=== PATIENT | male | born 2000 | race Caucasian/White ===

== ENCOUNTER 2022-10-24 22:04 | Day surgery (SDC) | payer BC, OTHER ==
[~2022-10-24] VITALS: Ht 175 cm; Wt 60.6 kg
[2022-10-24] MEDS ORDERED: ONDANSETRON 4 MG/2 ML (SDV) Z0FRAN ONE (22:14)
[2022-10-24] MEDS ORDERED: NS IV 1000 ML 1,000 ML IV STA (22:17)
[2022-10-24 22:23] LABS: BASOPHILS # (AUTO) 0.1 10^3/uL (0.0-0.1); BASOPHILS % (AUTO) 0 % (0-10); EOSINOPHILS # (AUTO) 0.1 10^3/uL (0.0-0.3); EOSINOPHILS % (AUTO) 1 % (0-10); HEMATOCRIT 48 % (40-54); HEMOGLOBIN 16.8 g/dL (13.3-17.7); LYMPHOCYTES # (AUTO) 4.3 10^3/uL (1.0-4.0); LYMPHOCYTES % (AUTO) 20 % (12-44); MEAN CORPUSCULAR HEMOGLOBIN 32 pg (25-34); MEAN CORPUSCULAR HGB CONC 35 g/dL (32-36); MEAN CORPUSCULAR VOLUME 90 fL (80-99); MEAN PLATELET VOLUME 9.4 fL (9.0-12.2); MONOCYTES # (AUTO) 1.3 10^3/uL (0.0-1.0); MONOCYTES % (AUTO) 6 % (0-12); NEUTROPHILS # (AUTO) 15.5 10^3/uL (1.8-7.8); NEUTROPHILS % (AUTO) 73 % (42-75); PLATELET COUNT 305 10^3/uL (130-400); WHITE BLOOD COUNT 21.3 10^3/uL (4.3-11.0)
[2022-10-24] MEDS ORDERED: fentaNYL INJ 100 MCG/2 ML AMP IVP STA (22:23)
--- NOTE | 2022-10-24 22:28 | ED Abdominal Pain ---
General Chief Complaint: Abdominal/GI Problems Stated Complaint: ABDOMINAL PAIN Source of Information: Patient Exam Limitations: No Limitations History of Present Illness Date Seen by Provider: Oct 24, 2022 Time Seen by Provider: 22:16 Initial Comments Here with complaint of right-sided abdominal pain. He reported right upper quadrant pain but appears to be more right lower quadrant pain. States it started about 3:30 PM. Last ate at 2:30 PM and had fish. Has had nausea and vomiting. Denies diarrhea. Denies fevers but does have chills. No previous significant medical history or surgeries. Timing/Duration: 4-6 Hours Severity/Quality: Moderate, Severe Location: RLQ Radiation: RUQ Activities at Onset: None Modifying Factors: Worsens With Movement, Worsens With Palpation Associated Symptoms: No Back Pain; Nausea/Vomiting; No Weakness Allergies and Home Medications Allergies Coded Allergies: No Known Drug Allergies (Unverified , 10/24/22) Patient Home Medication List Home Medication List Reviewed: Yes Review of Systems Review of Systems Constitutional: see HPI, chills; No fever EENTM: No Symptoms Reported Respiratory: No Symptoms Reported Cardiovascular: Denies Chest Pain Gastrointestinal: See HPI, Abdominal Pain Genitourinary: Denies Burning, Denies Flank Pain Musculoskeletal: No back pain Skin: No lesions, No rash Past Nveqguc-Inyakx-Udvnar Hx Patient Social History Tobacco Use?: No Use of E-Cig and/or Vaping dev: Yes E-Cig or Vaping type used: Nicotine Substance use?: No Alcohol Use?: No Past Medical History Surgeries: No Respiratory: No Cardiac: No Neurological: No Family Medical History Reviewed Nursing Family Hx No Pertinent Family Hx Physical Exam Vital Signs Vital Signs - First Documented 10/24/22 22:15 Temp 36.9 Pulse 120 Resp 20 B/P (MAP) 116/65 (82) Pulse Ox 99 O2 Delivery Room Air Capillary Refill : Height/Weight/BMI Height: '" Weight: lbs. oz. kg; BMI Method: General Appearance: WD/WN, mild distress HEENT: PERRL/EOMI, pharynx normal Neck: full range of motion, supple Respiratory: lungs clear, normal breath sounds Cardiovascular: no murmur, tachycardia Gastrointestinal: soft, guarding (Right lower quadrant), tenderness (Right lower quadrant) Extremities: non-tender, normal inspection Back: normal inspection, no CVA tenderness, no vertebral tenderness Neurologic/Psychiatric: alert, oriented x 3 Skin: normal color, warm/dry Progress/Results/Core Measures Results/Orders Lab Results Laboratory Tests Test 10/24/22 22:15 Range/Units White Blood Count 21.3 H 4.3-11.0 10^3/uL Red Blood Count 5.34 4.30-5.52 10^6/uL Hemoglobin 16.8 13.3-17.7 g/dL Hematocrit 48 40-54 % Mean Corpuscular Volume 90 80-99 fL Mean Corpuscular Hemoglobin 32 25-34 pg Mean Corpuscular Hemoglobin Concent 35 32-36 g/dL Red Cell Distribution Width 11.9 10.0-14.5 % Platelet Count 305 130-400 10^3/uL Mean Platelet Volume 9.4 9.0-12.2 fL Immature Granulocyte % (Auto) 0 % Neutrophils (%) (Auto) 73 42-75 % Lymphocytes (%) (Auto) 20 12-44 % Monocytes (%) (Auto) 6 0-12 % Eosinophils (%) (Auto) 1 0-10 % Basophils (%) (Auto) 0 0-10 % Neutrophils # (Auto) 15.5 H 1.8-7.8 10^3/uL Lymphocytes # (Auto) 4.3 H 1.0-4.0 10^3/uL Monocytes # (Auto) 1.3 H 0.0-1.0 10^3/uL Eosinophils # (Auto) 0.1 0.0-0.3 10^3/uL Basophils # (Auto) 0.1 0.0-0.1 10^3/uL Immature Granulocyte # (Auto) 0.1 0.0-0.1 10^3/uL Neutrophils % (Manual) 73 % Lymphocytes % (Manual) 19 % Monocytes % (Manual) 8 % Blood Morphology Comment NORMAL Sodium Level 141 135-145 MMOL/L Potassium Level 3.8 3.6-5.0 MMOL/L Chloride Level 102 98-107 MMOL/L Carbon Dioxide Level 26 21-32 MMOL/L Anion Gap 13 5-14 MMOL/L Blood Urea Nitrogen 9 7-18 MG/DL Creatinine 1.07 0.60-1.30 MG/DL Estimat Glomerular Filtration Rate 101 BUN/Creatinine Ratio 8 Glucose Level 103 70-105 MG/DL Calcium Level 10.4 H 8.5-10.1 MG/DL Corrected Calcium 8.5-10.1 MG/DL Magnesium Level 2.3 1.6-2.4 MG/DL Total Bilirubin 1.3 H 0.1-1.0 MG/DL Aspartate Amino Transf (AST/SGOT) 15 5-34 U/L Alanine Aminotransferase (ALT/SGPT) 16 0-55 U/L Alkaline Phosphatase 83 40-136 U/L C-Reactive Protein High Sensitivity 0.07 0.00-0.50 MG/DL Total Protein 8.0 6.4-8.2 GM/DL Albumin 5.1 H 3.2-4.5 GM/DL My Orders Orders - MYRON MURILLO MD Cbc With Automated Diff (10/24/22 22:17) Comprehensive Metabolic Panel (10/24/22 22:17) Hs C Reactive Protein (10/24/22 22:17) Magnesium (10/24/22 22:17) Ondansetron Injection (Zofran Injectio (10/24/22 22:30) Ns Iv 1000 Ml (Sodium Chloride 0.9%) (10/24/22 22:17) Ed Iv/Invasive Line Start (10/24/22 22:17) Ondansetron Injection (Zofran Injectio (10/24/22 22:14) Fentanyl Inj (Sublimaze Injection) (10/24/22 22:23) Ct Abd/Pelv W (Appendicitis) (10/24/22 22:23) Manual Differential (10/24/22 22:15) Promethazine Injection (Phenergan Injec (10/24/22 22:53) Promethazine Injection (Phenergan Injec (10/24/22 22:54) Iohexol Injection (Omnipaque 350 Mg/Ml 1 (10/24/22 23:15) Sodium Chloride Flush (Catheter Flush Sy (10/24/22 23:15) Ns (Ivpb) (Sodium Chloride 0.9% Ivpb Bag (10/24/22 23:15) Medications Given in ED Current Medications Medications Dose Ordered Sig/Henry Route Start Time Stop Time Status Last Admin Dose Admin Iohexol 100 ml ONCE ONCE IV 10/24/22 23:15 10/24/22 23:16 DC 10/24/22 23:10 75 ML Ondansetron HCl 4 mg ONCE ONCE IVP 10/24/22 22:30 10/24/22 22:31 DC 10/24/22 22:38 4 MG Ondansetron HCl 4 mg STK-MED ONCE .ROUTE 10/24/22 22:14 10/24/22 22:18 DC 10/24/22 22:15 4 MG Sodium Chloride 10 ml NEEDED PRN IV 10/24/22 23:15 10/24/22 23:10 10 ML Sodium Chloride 100 ml ONCE ONCE IV 10/24/22 23:15 10/24/22 23:16 DC 10/24/22 23:10 80 ML Vital Signs/I&O 10/24/22 22:15 Temp 36.9 Pulse 120 Resp 20 B/P (MAP) 116/65 (82) Pulse Ox 99 O2 Delivery Room Air Progress Progress Note : Progress Note Seen and evaluated. IV, labs including CBC, CMP, mag and CRP ordered. Normal saline 1 L bolus, Zofran 4 mg IV and fentanyl [address] abdomen pelvis with contrast appendicitis protocol ordered. Monitor patient. Differential diagnosis includes acute appendicitis, dehydration, intra-abdominal pathology, electrolyte abnormality 2320: White count is elevated with left shift. Chemistry is grossly normal. CRP is low. I have reviewed the CT scan and patient does have findings of appendicitis on my interpretation. Stat rad report received and confirms acute appendicitis. I did discuss the case with Dr. Hsu and he accepts patient for admission for acute appendicitis and request pain and nausea control medications as well as Zosyn and continued fluids while keeping patient n.p.o. and he will see him in the morning for the OR. All of this was discussed with patient and family who agree with plan. Patient did receive second dose of ondansetron 4 mg IV as well as Phenergan 25 mg IV for nausea and vomiting. He is currently more comfortable now. Diagnostic Imaging Diagonstic Imaging: CT Plain Films/CT/US/NM/MRI: abdomen, pelvis Comments Mild pathological enlargement of the appendix measuring approximately 8 mm in short axis. There is hyperemia of the appendical harris and mild periappendical inflammatory changes. Findings are compatible with early acute appendicitis. Reviewed: Reviewed Night Hawk Study, Reviewed by Me Departure Communication (Admissions) Time/Spoke to Admitting Phy: 23:19 Impression Primary Impression: Appendicitis Qualified Codes: K35.30 - Acute appendicitis with localized peritonitis, without perforation or gangrene Disposition: 09 ADMITTED INPATIENT Condition: Stable Admissions Decision to Admit Reason: Admit from ER (General) Decision to Admit/Date: Oct 24, 2022 Time/Decision to Admit Time: 23:19 MYRON MURILLO MD Oct 24, 2022 22:28
[2022-10-24] MEDS ORDERED: ONDANSETRON 4 MG/2 ML (SDV) Z0FRAN IVP ONE (22:30)
[2022-10-24 22:32] LABS: ALBUMIN 5.1 GM/DL (3.2-4.5); CHLORIDE 102 MMOL/L (98-107); POTASSIUM 3.8 MMOL/L (3.6-5.0); SODIUM 141 MMOL/L (135-145)
[2022-10-24 22:33] LABS: CALCIUM 10.4 MG/DL (8.5-10.1)
[2022-10-24 22:35] LABS: GLUCOSE 103 MG/DL (70-105)
[2022-10-24 22:36] LABS: CARBON DIOXIDE 26 MMOL/L (21-32)
[2022-10-24 22:37] LABS: BILIRUBIN,TOTAL 1.3 MG/DL (0.1-1.0)
[2022-10-24 22:38] LABS: ALKALINE PHOSPHATASE 83 U/L (40-136)
[2022-10-24 22:39] LABS: CREATININE SERUM 1.07 MG/DL (0.60-1.30); GFR ESTIMATED 101
[2022-10-24 22:40] LABS: BUN/CREATININE RATIO 8
[2022-10-24 22:41] LABS: ALANINE AMINOTRANSFERASE 16 U/L (0-55); MAGNESIUM 2.3 MG/DL (1.6-2.4)
[2022-10-24 22:50] LABS: LYMPHOCYTES % (MANUAL) 19 %; MONOCYTES % (MANUAL) 8 %; NEUTROPHILS % (MANUAL) 73 %; RBC MORPH NORMAL
[2022-10-24] MEDS ORDERED: PROMETHAZINE INJ 25 MG/ML (PHENERGAN) AMP IVP STA (22:53)
[2022-10-24] MEDS ORDERED: PROMETHAZINE INJ 25 MG/ML (PHENERGAN) AMP ONE (22:54)
[2022-10-24] MEDS ORDERED: NS 100 ML (IVPB) BAG IV ONE (23:15)
[2022-10-24] MEDS ORDERED: CATHETER FLUSH 10 ML SYR IV PRN (23:15)
[2022-10-24] MEDS ORDERED: IOHEXOL 350 MG/ML 100 ML (OMNIPAQUE 350) VIAL IV ONE (23:15)
[2022-10-24] MEDS ORDERED: PIPERACILLIN SODIUM/TAZOBACTAM 4.5 GM in NS (IVPB) 100 ML IV ONE (23:30)
[2022-10-25] VITALS (13 sets, daily range): BP systolic 94–124; BP diastolic 54–68
[2022-10-25] MEDS ORDERED: DROPERIDOL 5 MG/2 ML (INAPSINE) ED ONLY! IV ONE (00:15)
[2022-10-25] MEDS: LACTATED RINGERS 1,000 ML IV SCH ×2 (00:53→08:57)
[2022-10-25] MEDS ORDERED: fentaNYL INJ 100 MCG/2 ML AMP IV PRN (01:15)
[2022-10-25] MEDS ORDERED: PROMETHAZINE INJ 25 MG/ML (PHENERGAN) AMP IVP PRN (01:15)
[2022-10-25] MEDS ORDERED: ONDANSETRON 4 MG/2 ML (SDV) Z0FRAN IV PRN (01:15)
[2022-10-25] MEDS ORDERED: PIPERACILLIN SODIUM/TAZOBACTAM 4.5 GM in NS (IVPB) 100 ML IV SCH (06:00)
--- NOTE | 2022-10-25 07:22 | Consultation - Surgery ---
LURDES HARE 10/25/22 0722: History of Present Illness History of Present Illness Patient Consulted On(ty/time) 10/25/22 07:15 Date Seen by Provider: Oct 25, 2022 Time Seen by Provider: 07:00 History of Present Illness Patient is a 22-year-old male who presented to the ED last night with chief complaint of abdominal pain. Patient reports that the pain started yesterday afternoon around 3:30 and began to progressively worsen over the next few hours. Patient also had nausea with multiple episodes of vomiting/ dry heaving during this period. In the ED, patient was started on IV fluids and given fentanyl, phenergan, zofran, and droperidol for his pain and N/V, and started on Zosyn. CT of the abdomen and pelvis showed an acute appendicitis. Per nursing and patient's father, he slept throughout most of the night and has not had any further episodes of vomiting. This morning, the patient reports that his pain is well-controlled and is not currently having any nausea. Abdomen is tender on palpation in the RLQ and R flank. Patient has been NPO since last night in preparation for surgery today. Patient has no other complaints. Allergies and Home Medications Allergies Coded Allergies: No Known Drug Allergies (Unverified , 10/24/22) Patient Home Medication List Home Medication List Reviewed: Yes Past Pejrfph-Vceaxa-Uoctmm Hx Patient Social History Type Used: Electronic/Vapor (Nicotine) Alcohol Use?: No Have you traveled recently?: No Surgeries History of Surgeries: No Respiratory History of Respiratory Disorde: No Cardiovascular History of Cardiac Disorders: No Neurological History of Neurological Disord: No Family Medical History Significant Family History: No Pertinent Family Hx Family Medial History: Cardiovascular disease 19 FATHER Thyroid disease 19 MOTHER Review of Systems-General Constitutional: No chills, No fever EENTM: No hearing loss, No blurred vision, No double vision Respiratory: No cough, No short of breath Cardiovascular: No chest pain, No palpitations Gastrointestinal: RLQ, abdominal pain (RLQ and R flank), nausea (Improved, reports none this morning), vomiting (None today) Genitourinary: No dysuria, No hematuria Musculoskeletal: No back pain, No neck pain Skin: No change in color, No change in hair/nails Psychiatric/Neurological: Denies Numbness, Denies Tingling, Denies Weakness Physical Exam-General Problems Physical Exam Vital Signs Vital Signs - First Documented 10/24/22 22:15 Temp 36.9 Pulse 120 Resp 20 B/P (MAP) 116/65 (82) Pulse Ox 99 O2 Delivery Room Air Capillary Refill : Less Than 3 Seconds General Appearance: WD/WN, no apparent distress HEENT: PERRL/EOMI Neck: non-tender, supple Respiratory: chest non-tender, lungs clear, normal breath sounds, no respiratory distress, no accessory muscle use Cardiovascular: regular rate, rhythm, no edema, no murmur Gastrointestinal: soft, guarding (slight guarding on palpation of RLQ), te nderness (RLQ) Rectal: deferred Back: no CVA tenderness Extremities: non-tender, no pedal edema, no calf tenderness, normal capillary refill Neurologic/Psychiatric: alert, normal mood/affect, oriented x 3 Skin: normal color, warm/dry Lymphatic: no adenopathy (cervical) Data Review Labs Laboratory Tests 10/24/22 22:15: White Blood Count 21.3H, Red Blood Count 5.34, Hemoglobin 16.8, Hematocrit 48, Mean Corpuscular Volume 90, Mean Corpuscular Hemoglobin 32, Mean Corpuscular Hemoglobin Concent 35, Red Cell Distribution Width 11.9, Platelet Count 305, Mean Platelet Volume 9.4, Immature Granulocyte % (Auto) 0, Neutrophils (%) (Auto) 73, Lymphocytes (%) (Auto) 20, Monocytes (%) (Auto) 6, Eosinophils (%) (Auto) 1, Basophils (%) (Auto) 0, Neutrophils # (Auto) 15.5H, Lymphocytes # (Auto) 4.3H, Monocytes # (Auto) 1.3H, Eosinophils # (Auto) 0.1, Basophils # (Auto) 0.1, Immature Granulocyte # (Auto) 0.1, Neutrophils % (Manual) 73, Lymphocytes % (Manual) 19, Monocytes % (Manual) 8, Blood Morphology Comment NORMAL, Sodium Level 141, Potassium Level 3.8, Chloride Level 102, Carbon Dioxide Level 26, Anion Gap 13, Blood Urea Nitrogen 9, Creatinine 1.07, Estimat Glomerular Filtration Rate 101, BUN/Creatinine Ratio 8, Glucose Level 103, Calcium Level 10.4H, Corrected Calcium , Magnesium Level 2.3, Total Bilirubin 1.3H, Aspartate Amino Transf (AST/SGOT) 15, Alanine Aminotransferase (ALT/SGPT) 16, Alkaline Phosphatase 83, C-Reactive Protein High Sensitivity 0.07, Total Protein 8.0, Albumin 5.1H Assessment/Plan Assessment/Plan Assessment/Plan Acute appendicitis Leukocytosis N/V Continue zosyn Continue IV fluids Pain currently well-controlled, continue pain management and anti-emetics as needed Appendectomy scheduled for today, maintain NPO until then RON HSU DO 10/25/22 1011: History of Present Illness History of Present Illness Time Seen by Provider: 09:26 History of Present Illness Surgery asked to admit regarding appendicitis. HPI per ED: Here with complaint of right-sided abdominal pain. He reported right upper quadrant pain but appears to be more right lower quadrant pain. States it started about 3:30 PM. Last ate at 2:30 PM and had fish. Has had nausea and vomiting. Denies diarrhea. Denies fevers but does have chills. No previous significant medical history or surgeries. When I spoke to pt he stated pain was much better, but still there. He has not had any other vomiting since being admitted. Pain was 8 out of 10 and now is 4 out of 10, worse with movements. Allergies and Home Medications Allergies Coded Allergies: No Known Drug Allergies (Unverified , 10/24/22) Patient Home Medication List Home Medication List Reviewed: Yes Past Sicytuh-Aghykq-Bfiuzo Hx Patient Social History Smoking Status: Current Someday Smoker Alcohol Use?: No Seasonal Allergies Seasonal Allergies: No Surgeries History of Surgeries: No Respiratory History of Respiratory Disorde: No Cardiovascular History of Cardiac Disorders: No Neurological History of Neurological Disord: No Genitourinary History of Genitourinary Disor: No Gastrointestinal History of Gastrointestinal Di: No Musculoskeletal History of Musculoskeletal Dis: No Endocrine History of Endocrine Disorders: No HEENT History of HEENT Disorders: No Loss of Vision: Denies Hearing Impairment: Denies Cancer History of Cancer: No Family Medical History Significant Family History: Heart Disease, Other Conditions/Hx (Hyperthyroid - Mother) Family Medial History: Cardiovascular disease 19 FATHER Thyroid disease 19 MOTHER Review of Systems-General Constitutional: No chills, No fever EENTM: No hearing loss, No blurred vision, No double vision Respiratory: No cough, No short of breath Cardiovascular: No chest pain, No palpitations Gastrointestinal: RLQ, abdominal pain (RLQ and R flank), loss of appetite, nausea (Improved, reports none this morning), vomiting (None today) Genitourinary: No dysuria, No hematuria Musculoskeletal: No back pain, No neck pain Skin: No change in color, No change in hair/nails Psychiatric/Neurological: Denies Anxiety, Denies Depressed, Denies Numbness, Denies Tingling, Denies Weakness Physical Exam-General Problems Physical Exam General Appearance: WD/WN, no apparent distress Eyes: Bilateral Eye PERRL, Bilateral Eye EOMI HEENT: pharynx normal; No scleral icterus (R), No scleral icterus (L) Neck: non-tender, supple Respiratory: chest non-tender, lungs clear, normal breath sounds, no respiratory distress, no accessory muscle use Cardiovascular: regular rate, rhythm, no murmur Gastrointestinal: soft, guarding (slight guarding on palpation of RLQ), tenderness (RLQ) Rectal: deferred Back: no CVA tenderness, no vertebral tenderness Extremities: non-tender, no pedal edema, no calf tenderness Neurologic/Psychiatric: barrel burner II-XII nml as tested, no motor/sensory deficits, alert, normal mood/affect, oriented x 3 Skin: normal color, warm/dry Lymphatic: no adenopathy (neck, axilla or groin) Data Review Radiology Date of Exam:10/24/22 CT ABD/PELV W (APPENDICITIS) EXAMINATION: CT abdomen and pelvis with intravenous contrast. TECHNIQUE: Multiple contiguous axial images were obtained through the abdomen and pelvis after the uneventful administration of intravenous contrast. All CT scans use one or more of the following dose optimizing techniques: automated exposure control, MA and/or KvP adjustment based on patient size and exam type or iterative reconstruction. HISTORY: Right lower quadrant abdominal pain. Nausea and vomiting. COMPARISON: None available. FINDINGS: The heart is unremarkable. The included lung bases are clear. The liver, spleen, pancreas, adrenal glands, and kidneys have a normal appearance. There is no pathologically enlarged mesenteric or retroperitoneal adenopathy. The bowel loops are nondilated. The appendix is dilated measuring 0.9 cm with mild periappendicular fat stranding. There is no free fluid or free air. No acute osseous abnormalities. Ureters and bladder are grossly normal. There is no free air, loculated collection, or adenopathy in the pelvis. IMPRESSION: 1. Acute uncomplicated appendicitis. No abscess. No free fluid or free air. Agree with overnight report. Dictated by: Dictated on workstation # [id number] Dict: 10/25/2234 Trans: 10/25/22827 CVB [id number] Interpreted by: KATELYN MCGEE DO Electronically signed by: KATELYN MCGEE DO 10/25/22 0828 Assessment/Plan Assessment/Plan Assessment/Plan Acute appendicitis Leukocytosis N/V Admit, NPO, IV ABX, IV fluids, pain control and anti-emetics as needed. Appendectomy scheduled for today. I spoke to pt and his father; we discussed the procedure in detail. Talked about complications not limited to pain, bleeding, infection, scar, damage to bowel and need for further procedure. All questions answered to their satisfaction. Will get consent for Laparoscopic Appendectomy possible open and all other indicated procedures. Supervisory-Addendum Brief Verification & Attestation Participated in pt care: history, MDM, physical Personally performed: exam, history, MDM, supervision of care Care discussed with: Medical Student Procedures: n/a Verification and Attestation of Medical Student E/M Service A medical student performed and documented this service. I then reviewed and verified all information documented by the medical student and made modifications to such information, when appropriate. I personally performed a ph ysical exam, medical decision making and then discussed any differences between the notes and made revisions as necessary to create one note. Ron Hsu , 10/25/22 , 10:14 LURDES HARE Oct 25, 2022 07:22 RON HSU DO Oct 25, 2022 10:11
--- NOTE | 2022-10-25 07:38 | Diagnostic Imaging Report ---
EXAMINATION: CT abdomen and pelvis with intravenous contrast. TECHNIQUE: Multiple contiguous axial images were obtained through the abdomen and pelvis after the uneventful administration of intravenous contrast. All CT scans use one or more of the following dose optimizing techniques: automated exposure control, MA and/or KvP adjustment based on patient size and exam type or iterative reconstruction. HISTORY: Right lower quadrant abdominal pain. Nausea and vomiting. COMPARISON: None available. FINDINGS: The heart is unremarkable. The included lung bases are clear. The liver, spleen, pancreas, adrenal glands, and kidneys have a normal appearance. There is no pathologically enlarged mesenteric or retroperitoneal adenopathy. The bowel loops are nondilated. The appendix is dilated measuring 0.9 cm with mild periappendicular fat stranding. There is no free fluid or free air. No acute osseous abnormalities. Ureters and bladder are grossly normal. There is no free air, loculated collection, or adenopathy in the pelvis. IMPRESSION: 1. Acute uncomplicated appendicitis. No abscess. No free fluid or free air. Agree with overnight report. Dictated by: Dictated on workstation # [id number]
[2022-10-25] MEDS ORDERED: LACTATED RINGERS 1,000 ML IV PRN (10:00)
[2022-10-25] MEDS ORDERED: ASCO-262 PO (10:19)
[2022-10-25] MEDS ORDERED: BUP/EPI 0.5% 1:200,000 (SENSORCAINE) 30 ML VIAL ONE (10:33)
[2022-10-25] MEDS ORDERED: fentaNYL INJ 100 MCG/2 ML AMP ONE ×2 (11:39→13:26)
[2022-10-25] MEDS ORDERED: MIDAZOLAM 2 MG/2 ML (VERSED) VIAL ONE (11:39)
[2022-10-25] MEDS ORDERED: SEVOFLURANE (ULTANE) 15 ML INHAL SOLN ONE (12:29)
[2022-10-25] MEDS ORDERED: ONDANSETRON 4 MG/2 ML (SDV) Z0FRAN ONE (12:29)
[2022-10-25] MEDS ORDERED: proPOfol 200 MG/20 ML (DIPRIVAN) VIAL IV ONE (12:29)
[2022-10-25] MEDS ORDERED: KETOROLAC 30 MG/ML VIAL ONE (12:29)
[2022-10-25] MEDS ORDERED: LIDOCAINE PF 2% 5 ML (XYLOCAINE) VIAL ONE (12:29)
[2022-10-25] MEDS ORDERED: ROCURONIUM 50 MG/5 ML (ZEMURON) VIAL IV ONE (12:29)
[2022-10-25] MEDS ORDERED: GLYCOPYRROLATE 0.2 MG/ML (ROBINUL) 2 ML VIAL ONE (12:36)
[2022-10-25] MEDS ORDERED: morphine INJ 10 MG/ML 1ML (SYR OR VIAL) ONE (12:37)
[2022-10-25] MEDS ORDERED: NEOSTIGMINE (BLOXIVERZ ) 1 MG/1ML 10 ML VIAL ONE (12:37)
[2022-10-25] MEDS ORDERED: ONDANSETRON 4 MG/2 ML (SDV) Z0FRAN IVP PRN (13:00)
[2022-10-25] MEDS ORDERED: morphine INJ 10 MG/ML 1ML (SYR OR VIAL) IVP ONE (13:00)
[2022-10-25] MEDS ORDERED: fentaNYL INJ 100 MCG/2 ML AMP IVP ONE (13:00)
--- NOTE | 2022-10-25 13:00 | Anesthesia-General Post-Op ---
General Patient Condition Mental Status/LOC: Same as Preop Cardiovascular: Satisfactory Nausea/Vomiting: Absent Respiratory: Satisfactory Pain: Controlled Complications: Absent Post Op Complications Complications None Follow Up Care/Instructions Patient Instructions None needed. Anesthesia/Patient Condition Patient Condition Patient is doing well, no complaints, stable vital signs, no apparent adverse anesthesia problems. No complications reported per nursing. ERICA GUTIERREZ CRNA Oct 25, 2022 13:00
--- NOTE | 2022-10-25 13:08 | Progress Note-Post Operative ---
Post-Operative Progess Note Surgeon (s)/Jeeper Operator (s) Surgeon RON GAYLE DO Jeeper Operator: SHIRLENE Dean Pre-Operative Diagnosis acute appy Post-Operative Diagnosis acute appy Procedure & Operative Findings Date of Procedure 10/25/22 Procedure Performed/Findings PROCEDURE: Laparoscopic appendectomy. COMPLICATIONS: None. INDICATIONS: The patient is a 22 year old male who has been having right lower quadrant abdominal pain. Patient's exam consistent with appendicitis. I discussed risk and benefits of laparoscopic appendectomy and all indicated procedures with the possibility being a normal appendix. The patient understands the risks and benefits and wishes to proceed. Consent was signed on the chart. DESCRIPTION OF PROCEDURE: The patient was taken to the operating suite, prepped and draped in a sterile fashion. Timeout was performed. Local anesthetic was infiltrated just above the umbilicus and 11-blade scalpel was used to make a skin incision. Cautery was used to dissect down to the fascia and scored. Kochers were used to grasp and elevate it and the abdomen was then entered. A 0 Vicryl was placed in a [id number] fashion for closure at the end of the case. The balloon trocar was inserted into the abdomen and pneumoperitoneum was achieved. Under direct visualization of the laparoscope, a 5 mm trocar was placed in the suprapubic region and a 5 mm trocar was placed in the left lower quadrant. Appendix was located, the distal portion was distended with erythema and fibrinous material; it had not perforated. The mesoappendix was then divided down to the base of the appendix, until it was only attached to the cecum. Once at the base an Endo-ALICIA 2.5 stapler was then fired across the base of the appendix. It was then placed in an Endobag and removed through the 12 mm trocar site. The abdomen was then irrigated and suctioned. Beginnings of left inguinal hernia was seen. The abdomen was then desufflated and the trocars were removed. The 0 Vicryl placed at the beginning of the case was then tied closing the 12 mm fascial defect. The skin was then closed using 4-0 Monocryl in a subcuticular fashion. The abdomen was then washed and dried and Skin Affix was placed over the incisions. The patient tolerated the procedure well without any complications and was taken to the recovery room in stable condition. Anesthesia Type GET Estimated Blood Loss Estimated blood loss (mL): scant Specimens/Packing Specimens Removed appendix RON GAYLE DO Oct 25, 2022 13:08
[2022-10-25] MEDS ORDERED: ACHD5005 PO (13:09)
--- NOTE | 2022-10-25 13:10 | Discharge Inst-Surgical ---
Discharge Inst-Surgical Depart Medication/Instructions New, Converted or Re-Newed RX: Transmitted to Pharmacy Patient Instructions Follow up Appt: Make appointment for 1 week. [phone] Instructions: No lifting greater than 20 pounds. No strenuous activity. May shower in 24 hours, no tub bath or soaking. Use incentive spirometer at home as directed. No Smoking Skin/Wound Care: May remove bandages in am. You need to leave the Dermabond on incision it will fall off on it's own. Symptoms to Report: Appetite Changes, Extremity Discoloration, Numbness/Tingling, Swelling Increased, Bleeding Excessive, Eyesight Changes, Pain Increased, Urine Color Change, Constipation(Persistent), Fever over 101 degree F, Pain/Pressure in chest, Urinating Difficulty, Cough Up/Vomit Blood, Heart Beat Irreg/Pounding, Pain/Pressure in jaw, Cramps in feet or legs, Lightheadedness, Pain/Pressure in shoulder, Diarrhea(Persistent), Memory Changes Suddenly, Questions/Concerns, Weight gain consecutive days, Dizziness/Fainting, Nausea/Vomiting, Shortness of Breath, Weight gain over 2 pounds If questions or concerns contact your physician Or seek help at emergency department. Activity Activity as Tolerated: Yes Activity Instructions: Avoid Stress to Incision Driving Instructions: No Driving/Refer to Dr. Hines Discharge Diet: No Restrictions Diet After 24 Hours: Clear Liquid if Nauseous If Any Problems/Questions/Issu: Contact Your Physician, Go to Emergency Room Skin/Wound Care Infection Signs and Symptoms: Increased Redness, Foul Odor of Wound, Increased Drainage, Skin Itchy or Has a Rash, Increased Swelling, Temperature Above 101 F Wound Care Comment: heating pad to shoulder or neck tonight for pain Bathing Instructions: Shower Stitches/[place]/Dermabond Dis: Dermabond Ice Pack: Ice On and Off Site RON GAYLE DO Oct 25, 2022 13:10
== END 2022-10-25 15:30 | disposition home or self-care (01) ==
LOC: ER 22:09 → UNDOADMOB 23:24 → 4TH 23:24 → SDC 23:24 → UNDODISOB 10-25 15:30 → SDC 10-25 15:30
PROVIDERS: ATTEND Surgery
DX: K35.80 Unspecified acute appendicitis (principal); D72.829 Elevated white blood cell count, unspecified; F17.290 Nicotine dependence, other tobacco product, uncomplicated
CPT/HCPCS: 36415; 74177; 80053; 83735; 85007; 85027; 86141; 87081; 88304; 94664; 96361; 96366